=== PATIENT | female | born 1985 | race Hispanic/Latino ===

== ENCOUNTER 2023-06-19 09:12 | Emergency (ER) | payer SELFPAY | END 2023-06-19 10:26 | disposition home or self-care (01) | LOC: CSHERS 09:12 | DX: O99.513 Diseases of the respiratory system complicating pregnancy, third trimester (principal); J45.909 Unspecified asthma, uncomplicated; Z3A.28 28 weeks gestation of pregnancy | CPT/HCPCS: 71045 ==

== ENCOUNTER 2023-09-06 09:23 | Inpatient (IN) | payer MEDICAID, SELFPAY ==
[~2023-09-06 09:23] MED LIST: Bupivacaine 0.25% HCL 30 ML VIAL ONE
[2023-09-06] MEDS: Lactated Ringer's 1,000 ML IV SCH (10:00)
[2023-09-06 10:11] VITALS: BMI 33.0
[2023-09-06] MEDS ORDERED: Methylergonovine 0.2 MG/ML VIAL IM PRN (10:27)
[2023-09-06] MEDS ORDERED: Acetaminophen 500 MG TAB PO PRN (10:27)
[2023-09-06] MEDS ORDERED: Misoprostol 200 MCG TAB PR PRN (10:27)
[2023-09-06] MEDS ORDERED: hydrALAZINE 20 MG/ML VIAL SLOW IVP PRN ×2 (10:27→15:23)
[2023-09-06] MEDS ORDERED: Diphenoxylate HCl/Atropine Tablet PO PRN (10:27)
[2023-09-06] MEDS ORDERED: Carboprost 250 MCG/ML AMP IM PRN (10:27)
[2023-09-06] MEDS ORDERED: Butorphanol Tartrate 1 MG/ML VIAL SLOW IVP PRN (10:27)
[2023-09-06] MEDS ORDERED: Promethazine HCl 25 MG/ML VIAL IM PRN ×2 (10:27→11:47)
[2023-09-06] MEDS ORDERED: Ondansetron PF 4 MG/2 ML Vial IVP PRN ×2 (10:27→11:47)
[2023-09-06] MEDS ORDERED: Docusate 100 MG CAP PO PRN (10:27)
[2023-09-06] MEDS ORDERED: HYDROcodone/Acetaminophen 5/325 mg Tablet PO PRN ×2 (10:33→15:23)
[2023-09-06] MEDS ORDERED: Lidocaine 1% (PF) 30 ML VIAL SC PRN (10:33)
[2023-09-06 11:13] LABS: Hematocrit 37.8 % (34.9-44.5); Hemoglobin 12.7 g/dL (12.0-15.5); Mean Corpuscular HGB CONC 33.6 g/dL (32.0-36.0); Mean Corpuscular Hemoglobin 26.9 pg (27.0-33.0); Mean Corpuscular Volume 80.1 fl (81.6-98.3); Mean Platelet Volume 10.4 fl (7.4-10.4); Platelet Count 337 10x3/uL (150-450); RBC Distribution Width 15.3 % (11.5-14.5); Red Blood Cell (RBC) Count 4.72 10x6/uL (3.90-5.03); White Blood Cell (WBC) Count 9.7 10x3/uL (3.5-10.5)
[2023-09-06] MEDS ORDERED: Acetaminophen 325 MG TAB PO PRN (11:47)
[2023-09-06] MEDS ORDERED: Lactated Ringer's 500 ML IV PRN (11:47)
[2023-09-06] MEDS ORDERED: Moisturizing Cream (Eucerin) 113 GM JAR TOP PRN (11:47)
[2023-09-06] MEDS ORDERED: Naloxone HCl 0.4 mg/ml Vial IVP PRN ×2 (11:47)
[2023-09-06] MEDS ORDERED: ePHEDrine Sulfate 50 MG/10 ML VIAL SLOW IVP PRN (11:47)
[2023-09-06] MEDS: fentaNYL/Ropivacaine Epidural 100 ML ONE (11:47)
[2023-09-06] MEDS ORDERED: diphenhydrAMINE 50 MG/ML VIAL IVP PRN (11:47)
[2023-09-06 11:50] LABS: Syphilis Antibody Nonreactive (Nonreactive); Syphilis Antibody Index 0.08 S/CO (<1.00 Non-Reactive)
[2023-09-06 11:52] LABS: HBSAg Index 0.23 S/CO (0-0.99); Hep B Surf Ag - L&D Non-Reactive S/CO (NonReactive)
[2023-09-06] MEDS ORDERED: fentaNYL 2 mcg/Ropivacaine 0.2% Epidural 100 ML CADD EPIDURAL SCH (12:00)
[2023-09-06] MEDS ORDERED: Communication Order-Pharmacy FS SCH (12:00)
[2023-09-06] MEDS: Oxytocin 30 units/NS 500 ML 500 ML IV SCH (12:34)
[2023-09-06] MEDS ORDERED: Bisacodyl 10 MG SUPP PR PRN (15:23)
[2023-09-06] MEDS ORDERED: Benzocaine-Menthol 82.5 ML CAN TOP PRN (15:23)
[2023-09-06] MEDS ORDERED: Milk Of Magnesia 30 ML UDCUP PO PRN (15:23)
[2023-09-06] MEDS ORDERED: Zolpidem Tartrate 5 MG TAB PO PRN (15:23)
[2023-09-06] MEDS ORDERED: Lanolin Ointment 7 GM TUBE TOP PRN (15:23)
[2023-09-06] MEDS ORDERED: Preparation H Ointment 28 GM TUBE PR PRN (15:23)
[2023-09-06] MEDS ORDERED: Boostrix 0.5 ML (Tdap) VIAL (>/=7 yrs of age) IM ONE (15:23)
[2023-09-06] MEDS ORDERED: Varicella virus, LIVE 0.5 ML VIAL SC ONE (15:23)
[2023-09-06] MEDS ORDERED: diphenhydrAMINE 25 MG CAP PO PRN (15:23)
[2023-09-06] MEDS: Ferrous Sulfate 325 MG TAB PO SCH (18:43)
[2023-09-06] MEDS: Docusate 100 MG CAP PO SCH (21:30)
[2023-09-06] MEDS: Ibuprofen 800 MG TAB PO PRN (21:30)
[2023-09-07 03:19] LABS: Hematocrit 33.5 % (34.9-44.5); Hemoglobin 10.7 g/dL (12.0-15.5)
[2023-09-07] MEDS ORDERED: Ibuprofen 800 MG TAB PO PRN (06:42)
[2023-09-07 07:40] VITALS: BP 98/59; TEMP 98.1
[2023-09-07] MEDS: Prenatal Vitamin 1 TAB PO SCH (08:31)
== END 2023-09-07 16:28 | disposition home or self-care (01) | DRG 807 ==
LOC: CSHLD/OP 09:23 → CSHLD 11:14 → CSHPP 17:52
PROVIDERS: ADMIT Obstetrics & Gynecology; ATTEND Obstetrics & Gynecology
PROC: 10E0XZZ Delivery of Products of Conception, External Approach (ICD-10-PCS; principal; 2023-09-06)
PROC: 0HQ9XZZ Repair Perineum Skin, External Approach (ICD-10-PCS; 2023-09-06)
DX: O77.0 Labor and delivery complicated by meconium in amniotic fluid (principal); Z37.0 Single live birth; Z3A.38 38 weeks gestation of pregnancy; O70.0 First degree perineal laceration during delivery
CPT/HCPCS: 51702; 85014; 85018; 85027; 86780; 86850; 86900; 86901; 87340; 99285; J0665; J2590; J7120